=== PATIENT | female | born 1980 | race Caucasian/White ===

== ENCOUNTER 2020-12-25 10:42 | Day surgery (SDC) | payer MEDICARE, MEDICAID, SELFPAY ==
[2020-12-25] VITALS (7 sets, daily range): BP systolic 101–117; BP diastolic 65–83; PULSE 66–87; RESP 16–18; TEMP 36.4–37.5; O2SAT 96–100; BMI 18.5
--- NOTE | 2020-12-25 | EGD_PTH ---
PATIENT: MICHELE GALLEGOS LOC: EN U#:[id number] AGE/SX: 40/F ROOM: RE12/25/[address]: Dr. Marquise Plunkett MD : 1980 BED: DIS: 12/25/2020 SPEC #: [id number] RECD: 12/25/20 11:27 STATUS: KRUNAL SANZEdward #: [id number] LISANDRO: 12/25/20 00:[address]: Marquise Plunkett DEPT: SURGICAL PATHOLOGY RECD BY: Kerry Barahona ENTERED: 12/25/20 13:06 SP TYPE: EGD BIOPSY OT DR: Dr. Abiola Bass MD Tissues: Gastric mucous membrane Procedures: Surgery Specimen Level IV HEADER OPERATION: EGD ([facility] [place] PRE-OP DIAGNOSIS: Failure to thrive, nausea TISSUE SUBMITTED: Antrum biopsy for H. pylori and path MICROSCOPIC DIAGNOSIS Gastric antrum, biopsy: Mild chronic gastritis. See comment. AM:cortes 12/26/2020 COMMENT The results of immunohistochemistry for Helicobacter pylori will be reported separately ([id number]). MICROSCOPIC DESCRIPTION Slides are reviewed. GROSS DESCRIPTION Received in fixative is one container labeled with the patient's name and designated antrum biopsy. The specimen consists of one irregular fragment of light clemens soft tissue that measures 0.4 x 0.2 x 0.1 cm. The specimen is totally submitted in one cassette. / SJ:cortes 12/25/20 TC:3 CPT: 05320
[2020-12-25 11:06] LABS: Internal QC Validated? YES +Cl - CLEAR BKGD; Pregnancy, Urine Negative Negative
[2020-12-25] MEDS: Lactated Ringers 1,000 ML 100 ML IV (11:12)
--- NOTE | 2020-12-25 12:00 | IMM_PTH ---
PATIENT: MICHELE GALLEGOS LOC: EN U#:[id number] AGE/SX: 40/F ROOM: RE12/25/[address]: Dr. Marquise Plunkett MD : 1980 BED: DIS: 12/25/2020 SPEC #: [id number] RECD: 12/25/20 13:08 STATUS: KRUNAL REEdward #: [id number] LISANDRO: 12/25/20 12:[address]: Marquise Plunkett DEPT: IMMUNOHISTOCHEMISTRY RECD BY: Deann Olivo ENTERED: 12/25/20 13:08 SP TYPE: IMMUNO OTHR DR: Dr. Abiola Bass MD Tissues: Stomach, NOS Procedures: H Pylori (initial) PHYSICIAN & INSTITUTION [place] [address] SPECIMEN INFORMATION: Tissue Source: Antrum biopsy Clinical Info: Robyn to thriveevelyn Specimen Number: [id number] CPT code: 50094 METHODOLOGY: Deparaffinized sections of prefer/formalin-fixed tissue or PAP/DQ stained slides are incubated with monoclonal/polyclonal antibodies/oligonucleotide probes. Localization is made via biotin free immunoperoxidase method. Appropriate controls are performed and reacted as expected. Results on target cell population are indicated in the following table: RESULTS: ANTIBODY / CLONE RESULT H Pylori (polyclonal) negative These tests were developed and their performance characteristics determined by [facility]. They may not have been cleared or approved by the U.S. Food and Drug Administration. The FDA has determined that such clearance or approval is not necessary. INTERPRETATION: Antrum biopsy: Negative for Helicobacter pylori organisms. AM:cortes 12/26/2020
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
--- NOTE | 2020-12-28 15:09 | OP.EGD_ITS ---
Patient Name: Brianna Chowdhury Procedure Date: 12/25/2020 10:14 AM Date of : 1980 Age: 40 Procedure: Upper GI endoscopy Indications: Failure to thrive, Nausea Providers: Marquise Plunkett MD Referring MD: Abiola Bass Medicines: See the Anesthesia note for documentation of the administered medications Patient Profile: This is a 40 year old female. Refer to note in patient chart for documentation of history and physical. Complications: No immediate complications. Estimated blood loss: Minimal. Procedure: Pre-Anesthesia Assessment: - Prior to the procedure, a History and Physical was performed, and patient medications and allergies were reviewed. The patient's tolerance of previous anesthesia was also reviewed. The risks and benefits of the procedure and the sedation options and risks were discussed with the patient. All questions were answered, and informed consent was obtained. Prior Anticoagulants: The patient has taken no previous anticoagulant or antiplatelet agents. ASA Grade Assessment: II - A patient with mild systemic disease. After reviewing the risks and benefits, the patient was deemed in satisfactory condition to undergo the procedure. After obtaining informed consent, the endoscope was passed under direct vision. Throughout the procedure, the patient's blood pressure, pulse, and oxygen saturations were monitored continuously. The gastroscope was introduced through the mouth, and advanced to the second part of duodenum. The upper GI endoscopy was accomplished without difficulty. The patient tolerated the procedure well. Scope In: 12:11:31 PM Scope Out: 12:14:04 PM Total Procedure Duration Time 0 hours 2 minutes 33 seconds Findings: The Z-line was regular and was found 40 cm from the incisors. No biopsies or other specimens were collected for this exam. Localized mild inflammation characterized by erythema was found in the duodenal bulb. No biopsies or other specimens were collected for this exam. Localized minimal inflammation characterized by erythema was found in the prepyloric region of the stomach. Biopsies were taken with a cold forceps for Helicobacter pylori testing. Impression: - Z-line regular, 40 cm from the incisors. No specimens collected. - Duodenitis. No specimens collected. - Gastritis. Biopsied. Recommendation: - Discharge patient to home. - Resume previous diet. - Continue present medications. - Await pathology results. - Repeat upper endoscopy PRN for surveillance. - Return to nurse practitioner in 1 week. Procedure Code(s): --- Professional --- 26394, Esophagogastroduodenoscopy, flexible, transoral; with biopsy, single or multiple Diagnosis Code(s): --- Professional --- K29.80, Duodenitis without bleeding K29.70, Gastritis, unspecified, without bleeding R62.7, Adult failure to thrive R11.0, Nausea CPT copyright 2017 [employer]. All rights reserved. The codes documented in this report are preliminary and upon executive secretary social welfare review may be revised to meet current compliance requirements. MD Marquise Barbosa MD 12/25/2020 12:18:49 PM This report has been signed electronically. Number of Addenda: 0 Note Initiated On: 12/25/2020 10:14 AM
--- NOTE | 2020-12-28 15:09 | OP.CCLET_ITS ---
12/25/2020 Abiola Bass [address] [place] [id number] Re : Upper GI endoscopy procedure for Brianna Trenton Dear Dr. Bass This procedure was performed on Friday, December 25, 2020. My impressions and recommendations are as follows: Impressions : - Z-line regular, 40 cm from the incisors. No specimens collected. - Duodenitis. No specimens collected. - Gastritis. Biopsied. Recommendations : - Discharge patient to home. - Resume previous diet. - Continue present medications. - Await pathology results. - Repeat upper endoscopy PRN for surveillance. - Return to nurse practitioner in 1 week. My findings are described in the full procedure note, which is enclosed. If I can be of further assistance, please feel free to contact me at Doctor phone number(s): , Fax: [phone], Work: . Sincerely, MD Marquise Barbosa MD 12/25/2020 12:18:49 PM This report has been signed electronically.
== END 2020-12-25 13:10 ==
LOC: EN 10:43 → AC 10:44
PROVIDERS: Anesthesiology; PCP Internal Medicine; Referring Provider Internal Medicine; Visit Provider Surgery
PROC: 0DJ08ZZ Inspection of Upper Intestinal Tract, Via Natural or Artificial Opening Endoscopic (ICD-10-PCS; CPT 43235; principal; 2020-12-25 11:55)
DX: K29.80 Duodenitis without bleeding (principal); K29.50 Unspecified chronic gastritis without bleeding; R62.7 Adult failure to thrive; R11.0 Nausea; F32.9 Major depressive disorder, single episode, unspecified; F41.1 Generalized anxiety disorder; K21.9 Gastro-esophageal reflux disease without esophagitis; F17.210 Nicotine dependence, cigarettes, uncomplicated; F12.90 Cannabis use, unspecified, uncomplicated; Z79.899 Other long term (current) drug therapy; Z68.1 Body mass index [BMI] 19.9 or less, adult
CPT/HCPCS: 43239; 81025; 87426; 88305; 88342; C9803; J7120; J2405

== ENCOUNTER 2021-07-24 14:16 | Emergency (ER) | payer MEDICARE, MEDICAID, SELFPAY ==
[2021-07-24 14:16] VITALS: BP 89/72; PULSE 78; RESP 16; TEMP 36.6; O2SAT 98; BMI 18.5
--- NOTE | 2021-07-24 16:39 | EX.ED.DYSGE1 ---
HPI History of Present Illness Chief Complaint: Headache Detail of Chief Complaint: Cold symptoms and headache Informant: patient Narrative Narrative: Patient presents with cold symptoms for a couple of days with cough and myalgias and headache and runny nose. Patient states the headache started couple of days ago and she cannot get rid of it. She describes a photophobia and vomited x2 yesterday. She denies any Covid exposures. Patient has not had her Covid vaccine. Cough is mostly nonproductive. Patient states the headache came on gradually. She describes the headache as throbbing and involving the entire head. Prior similar symptoms: Yes PFSH PFSH Medical History Anxiety Anxiety and depression Chronic back pain Chronic cough Depression Difficulty swallowing Frequent headaches Gastric reflux GERD (gastroesophageal reflux disease) History of alcohol abuse History of pain when walking History of palpitations Injury of head and neck Manic depressive disorder Marijuana use Migraine headache Restless legs Shoulder pain Smoker Home Medications pantoprazole 40 mg tablet,delayed release 40 mg PO QAM #90 tab 10/20/17 [Rx Last Taken Unknown] cholecalciferol (vitamin D3) [Vitamin D3] 25 mcg PO DAILY 12/18/20 [History Last Taken Unknown] sertraline 100 mg PO DAILY 12/18/20 [History Last Taken Unknown] Allergy/AdvReac Type Severity Reaction Status Date / Time No Known Allergies Allergy Verified 07/24/21 14:19 Family History (Updated 10/20/17 @ 14:38 by Daily Decker) Mother COPD (chronic obstructive pulmonary disease) Alcohol abuse Anxiety and depression Brother Anxiety and depression Social History (Updated 10/20/17 @ 14:39 by Daily Decker) Smoking Status: Current every day smoker tobacco type: cigarettes Tobacco: How many years used: 20 alcohol intake: former year quit: 2001 substance use type: marijuana what type of physical activity do you participate in: none ROS ROS ED Constitutional Constitutional ED: Reports systems reviewed and no addt'l complaints, except as documented; Denies body ache(s), change in weight or chills Eyes Eyes: Denies acute decrease in peripheral vision, change in vision, double vision or loss of vision ENT ENT ED: Reports none; Denies ear pain, lip swelling, loss taste/smell, neck pain, otalgia or sore throat Cardiovascular Cardiovascular: Reports none; Denies abdominal pain, chest pain with activity, leg edema, lightheadedness, palpitations, rapid heart rate or syncope Respiratory/Chest Respiratory/Chest: Reports none and cough; Denies change in mental status, dry cough, dyspnea, hemoptysis, shortness of breath at rest or shortness of breath with exertion Gastrointestinal Gastrointestinal: Reports none, nausea and vomiting; Denies abdominal pain, change in stool character, diarrhea, hematemesis, hematochezia, melena or rectal bleeding Genitourinary Genitourinary ED: Reports none; Denies abdominal discomfort, anuria, dysuria, genital pain or polyuria Musculoskeletal Musculoskeletal: Reports none and myalgias; Denies arthralgias, back pain, difficulty walking, extremity pain or muscle weakness Integumentary Reports none; Denies abscess or rash Neurologic Neurologic: Reports none and headache(s); Denies abnormal gait, confusion, focal weakness, frequent falls, loss of vision, numbness, paresthesias, radicular pain, vertigo or weakness Psychiatric Psychiatric: Reports systems reviewed and no addt'l complaints, except as documented and none; Denies behavioral changes, confusion, difficulty concentrating, hallucinations, suicidal ideation, tactile hallucinations or visual hallucinations Endocrine Endocrinology: Denies none, cold intolerance, excessive sweating, fatigue or heat intolerance Hematologic/Lymphatic Hematologic/Lymphatic: Reports none; Denies anemia, easy bleeding or easy bruising Allergic/Immunologic Allergic/Immunologic ED: Denies as per HPI, none, lip swelling, mouth swelling, throat swelling, tongue swelling or hives EXAM Physical Exam Const Vital Signs: 07/24/21 14:16 07/24/21 17:20 Temperature 97.8 F 98.6 F Temperature Source Temporal Temporal Pulse Rate 78 Respiratory Rate 16 Blood Pressure 89/72 L Blood Pressure Mean 77 Pulse Ox 98 Oxygen Delivery Method Room Air Room Air Positive well nourished and well developed General Appearance ED: well developed and NAD HEENT Reports TM's clear and moist mucous membranes normocephalic and atraumatic; Negative for trauma or tenderness Tympanic Membrane ED: Yes TM's clear Eyes PERRL and EOMs intact bilaterally General Eye ED: Negative for pale conjunctiva or scleral icterus Neck no lymphadenopathy, supple and no JVD General: Negative for tenderness Chest Wall inspection of chest normal and palpation of chest normal Chest: Negative for tenderness Resp normal respiratory effort and clear to auscultation bilaterally Effort and Inspection: Negative for respiratory distress or pain with movement Auscultation: Negative for rhonchi, wheezes or diminished lung sounds Cardio regular rate, regular rhythm, S1 normal heart sound, S2 normal heart sound and no murmurs Peripheral Pulses: pulses 2+ throughout GI normal to inspection, nondistended, normoactive bowel sounds, soft to palpation, non-tender, non-distended and no masses Back/Spine no CVA tenderness and no thoracic nor lumbar tenderness Extremity normal to inspection General Extremety ED: Negative for edema General Extremity: Negative for edema Neuro oriented x3, CN's II-XII intact bilaterally, no sensory deficits noted and gait normal Neuro Narrative: Finger-nose and heel pagan testing within normal limits, negative Romberg, negative for drift, fundi benign Sensorium / Orientation: awake, alert, oriented to person, oriented to place and oriented to time Motor Exam: strength 5/5 throughout and strength abnormal Psych mental status grossly normal Skin no rashes or lesions noted and no wounds MDM MDM MDM Narrative Medical decision making narrative: IV line established. Patient was given Reglan, Benadryl, Toradol, and a liter fluid bolus and her headache resolved. Her influenza and COVID-19 testing was negative. At this point her headaches resolved and she is feeling much improved. I suspect she likely has a viral URI. Patient advised to push fluids. Patient to return if condition should worsen anyway. Discharge Plan Triage Chief Complaint: Headache ED Provider: Jeanette Esteves Dx/Rx/DC Orders Clinical Impression: Viral URI, Migraine Instructions: ED, Migraine (Classical), ED URI, Viral, No Abx (Adult) Prescriptions: No Action pantoprazole 40 mg tablet,delayed release (DR/EC) 40 mg PO QAM Qty: 90 RF: 4 sertraline 100 mg tablet 100 mg PO DAILY RF: 0 cholecalciferol (vitamin D3) [Vitamin D3] 25 mcg (1,000 unit) Tablet 25 mcg PO DAILY RF: 0 Primary Care Provider: Abiola Bass Referrals: bAiola Bass MD [Primary Care Provider] - 5-7 Days Disposition Disposition: Home, Self Care
[2021-07-24 17:20] VITALS: TEMP 37
[2021-07-24] MEDS: 0.9% Normal Saline 1,000 ML 1000 ML IV (17:24)
[2021-07-24] MEDS: Ketorolac 30 MG/ML Syringe IV (17:24)
[2021-07-24] MEDS: DiphenhydrAMINE 50 MG/ML Syringe 25 MG IV (17:24)
[2021-07-24] MEDS: Metoclopramide 10 MG/2 ML Vial IV (17:24)
[2021-07-24 18:38] VITALS: BP 99/70; PULSE 62; RESP 16; TEMP 36.9; O2SAT 99
== END 2021-07-24 18:39 | disposition home or self-care (01) ==
PROVIDERS: Emergency Provider Emergency Medicine; PCP Internal Medicine
DX: J06.9 Acute upper respiratory infection, unspecified (principal); G43.909 Migraine, unspecified, not intractable, without status migrainosus; F41.9 Anxiety disorder, unspecified; K21.9 Gastro-esophageal reflux disease without esophagitis; Z79.899 Other long term (current) drug therapy; F31.9 Bipolar disorder, unspecified; F17.210 Nicotine dependence, cigarettes, uncomplicated
CPT/HCPCS: 87426; 87804; 96374; 96375; 99283; J7030; A4216

== ENCOUNTER 2021-07-28 12:38 | Emergency (ER) | payer MEDICARE, MEDICAID, SELFPAY ==
[2021-07-28 12:38] VITALS: BP 105/81; PULSE 61; RESP 16; TEMP 36.3; O2SAT 99; BMI 17.7
--- NOTE | 2021-07-28 15:05 | EX.ED.DYSGE1 ---
HPI History of Present Illness Chief Complaint: Nausea/Vomiting Informant: patient Narrative Narrative: Patient returns the emergency with nausea vomiting diarrhea. Her headache is gone. She has no congestion runny nose or cough. She is not having abdominal pain. She has no urinary symptoms such as dysuria frequency or urgency. She is still urinating. She states she cannot keep any fluids down. She has nothing at home for nausea. She did have Covid testing the other day which was negative. She also has no myalgias. PFSH PFSH Medical History Anxiety Anxiety and depression Chronic back pain Chronic cough Depression Difficulty swallowing Frequent headaches Gastric reflux GERD (gastroesophageal reflux disease) History of alcohol abuse History of pain when walking History of palpitations Injury of head and neck Manic depressive disorder Marijuana use Migraine headache Restless legs Shoulder pain Smoker Home Medications pantoprazole 40 mg tablet,delayed release 40 mg PO QAM #90 tab 10/20/17 [Rx Last Taken Unknown] cholecalciferol (vitamin D3) [Vitamin D3] 25 mcg PO DAILY 12/18/20 [History Last Taken Unknown] sertraline 100 mg PO DAILY 12/18/20 [History Last Taken Unknown] ondansetron 4 mg PO Q8H PRN #10 tab 07/28/21 [Rx Last Taken Unknown] promethazine 25 mg PO TID PRN #10 tab 07/28/21 [Rx Last Taken Unknown] Allergy/AdvReac Type Severity Reaction Status Date / Time No Known Allergies Allergy Verified 07/28/21 12:40 Family History Mother COPD (chronic obstructive pulmonary disease) Alcohol abuse Anxiety and depression Brother Anxiety and depression Social History Smoking Status: Current every day smoker tobacco type: cigarettes Tobacco: How many years used: 20 alcohol intake: former year quit: 2001 substance use type: marijuana what type of physical activity do you participate in: none ROS ROS ED Constitutional Constitutional ED: Denies chills or fever(s) Eyes Eyes: Denies change in vision ENT ENT ED: Denies rhinorrhea or sore throat Cardiovascular Cardiovascular: Denies chest pain or palpitations Respiratory/Chest Respiratory/Chest: Denies cough or dyspnea Gastrointestinal Gastrointestinal: Reports diarrhea, nausea, vomiting and other Details: No blood in stool or vomitus. ; Denies abdominal pain Genitourinary Genitourinary ED: Denies dysuria, hematuria or urinary frequency Musculoskeletal Musculoskeletal: Denies myalgias Integumentary Denies rash Neurologic Neurologic: Reports other Details: Her headache has completely resolved. ; Denies headache(s) Psychiatric Psychiatric: Reports anxiety and depression Endocrine Endocrinology: Denies polydipsia or polyuria Allergic/Immunologic Allergic/Immunologic ED: Denies mouth swelling or urticaria EXAM Physical Exam Const Vital Signs: 07/28/21 12:38 07/28/21 15:14 07/28/21 17:51 Temperature 97.4 F L Temperature Source Temporal Pulse Rate 61 61 64 Respiratory Rate 16 14 Blood Pressure 105/81 H 100/80 104/75 Blood Pressure Mean 89 86 84 Pulse Ox 99 98 Oxygen Delivery Method Room Air Room Air Positive well nourished and well developed General Appearance ED: well developed and NAD HEENT Reports moist mucous membranes HEENT Narrative: Mucous membranes are still moist. Eyes General Eye ED: Negative for pale conjunctiva or scleral icterus Neck no JVD Chest Wall inspection of chest normal Resp normal respiratory effort and clear to auscultation bilaterally Auscultation: Negative for rales, rhonchi or wheezes Cardio regular rate and regular rhythm GI normal to inspection, nondistended, normoactive bowel sounds and non-tender GI Narrative: Completely benign abdominal exam. Bowel sounds are normal. Palpation: soft Back/Spine no CVA tenderness Extremity General Extremety ED: Negative for edema or tenderness General Extremity: Negative for edema Neuro Sensorium / Orientation: alert Psych mental status grossly normal Skin no rashes or lesions noted MDM MDM MDM Narrative Medical decision making narrative: Patient's electrolytes show no marked abnormalities. She is better. She is gotten fluids. She has not vomited. She still has some nausea. I will write for some Phenergan here. We will write her for both Phenergan and Zofran to go. We discussed returning with worsening symptoms, development of pain, fevers or other concerns. Lab Data Attestation: I reviewed the patient's lab results. Labs: Laboratory Results - last 24 hr 07/28/21 14:10 Sodium 139 Potassium 3.8 Chloride 106 Carbon Dioxide 25.0 Anion Gap 8 BUN 10 Creatinine 0.56 Estim Creat Clear Calc 87.02 Est GFR (MDRD) Af Amer 153 Est GFR (MDRD) Non-Af 127 BUN/Creatinine Ratio 17.8 Glucose 73 L Calcium 8.7 Discharge Plan Triage Chief Complaint: Nausea/Vomiting ED Provider: Dawson Zendejas Dx/Rx/DC Orders Clinical Impression: Nausea vomiting and diarrhea, Viral syndrome Instructions: ED Vomiting and Diarrhea ... Prescriptions: New ondansetron 4 mg tablet,disintegrating 4 mg PO Q8H PRN (Reason: nausea and vomiting) Qty: 10 RF: 0 promethazine 25 mg tablet 25 mg PO TID PRN (Reason: nausea and vomiting) Qty: 10 RF: 0 No Action pantoprazole 40 mg tablet,delayed release (DR/EC) 40 mg PO QAM Qty: 90 RF: 4 sertraline 100 mg tablet 100 mg PO DAILY RF: 0 cholecalciferol (vitamin D3) [Vitamin D3] 25 mcg (1,000 unit) Tablet 25 mcg PO DAILY RF: 0 Primary Care Provider: Abiola Bass Referrals: Abiola Bass MD [Primary Care Provider] - 3-5 Days Disposition Disposition: Home, Self Care
[2021-07-28] MEDS: 0.9% Normal Saline 1,000 ML 1000 ML IV (15:13)
[2021-07-28] MEDS: Ondansetron 4 MG/2 ML Vial IV (15:13)
[2021-07-28 15:14] VITALS: BP 100/80; PULSE 61; RESP 14; O2SAT 98
[2021-07-28 15:25] LABS: Anion Gap 8 (5-15); BUN 10 mg/dL (7-18); BUN/Creat Ratio 17.8 RATIO (10-20); Calcium,Total 8.7 mg/dL (8.5-10.1); Chloride 106 mmol/L (98-107); Creatinine, Serum 0.56 mg/dL (0.55-1.02); EST Glomerular Filtration Rate 127 mL/min (>60); Est Glom Filt Rate - Afr Amer 153 mL/min (>60); Estimated Creatinine Clearance 87.02 ml/min; Glucose 73 mg/dL (74-106); Potassium 3.8 mmol/L (3.5-5.1); Sodium Level 139 mmol/L (136-145)
[2021-07-28 17:51] VITALS: BP 104/75; PULSE 64
[2021-07-28] MEDS: proMETHazine 25 MG/ML Syringe 12.5 MG IM (18:06)
== END 2021-07-28 18:11 | disposition home or self-care (01) ==
PROVIDERS: Emergency Provider Emergency Medicine; PCP Internal Medicine; Visit Provider Emergency Medicine
DX: R11.2 Nausea with vomiting, unspecified (principal); R19.7 Diarrhea, unspecified; B34.9 Viral infection, unspecified; F17.210 Nicotine dependence, cigarettes, uncomplicated; F12.10 Cannabis abuse, uncomplicated
CPT/HCPCS: 80048; 96361; 96372; 96374; 99283; J7030; A4216; J2405

== ENCOUNTER 2022-05-30 05:45 | Day surgery (SDC) | payer MEDICARE, MEDICAID, SELFPAY ==
[2022-05-29 14:59] LABS: Hematocrit 38.8 % (37-47); Hemoglobin 13.1 g/dL (12.0-15.0); Mean Corp Hgb Conc 33.8 g/dL (32-36); Mean Corpuscular Hgb 29.2 pg (27.0-32.0); Mean Corpuscular Volume 86.6 fL (81-99); Mean Platelet Vol. 11.1 fl (6.2-12.0); Platelet Count 240 K/mm3 (150-450); RBC Distribution Width CV 12.6 % (11.6-14.6); RBC Distribution Width SD 39.8 fl (35.1-43.9); Red Blood Count 4.48 M/mm3 (4.2-5.4); White Blood Count 7.6 K/mm3 (4.4-11.0)
[2022-05-29 16:19] LABS: Internal QC Validated? YES +Cl - CLEAR BKGD; Pregnancy, Urine Negative Negative
[2022-05-30] VITALS (7 sets, daily range): BP systolic 91–127; BP diastolic 54–84; PULSE 16–84; RESP 15–20; TEMP 36.8–38.6; O2SAT 94–100; BMI 19.3
[2022-05-30] MEDS: Lactated Ringers 1,000 ML 15 ML IV (06:15)
[2022-05-30 06:33] LABS: Internal QC Validated? YES +Cl - CLEAR BKGD; Pregnancy, Urine Negative Negative
--- NOTE | 2022-05-30 07:30 | EMB_PTH ---
PATIENT: MICHELE GALLEGOS LOC: [facility] [place] U#:[id number] AGE/SX: 41/F ROOM: RE05/30/[address]: Dr. Rachel Rodriguez DO : 1980 BED: DIS: 05/30/2022 SPEC #: [id number] RECD: 05/30/22 11:37 STATUS: KRUNAL REEdward #: [id number] LISANDRO: 05/30/22 07:[address]: Rachel Rodriguez DEPT: SURGICAL PATHOLOGY RECD BY: Ev Valadez ENTERED: 05/30/22 12:46 SP TYPE: ENDOM BX/C ANDREW DR: Dr. Abiola Bass MD Tissues: Endometrium, NOS Procedures: Surgery Specimen Level IV HEADER OPERATION: Cervical dilation, attempted hysteroscopy, cervical biopsy PRE-OP DIAGNOSIS: Menorrhagia TISSUE SUBMITTED: Endometrial biopsy MICROSCOPIC DIAGNOSIS Endometrial biopsy: Fragments of benign endocervical epithelium and blood. Scant strips of benign endometrial epithelium. See comment. SJ:cortes 06/02/2022 COMMENT Significant amount of endometrial tissue is not seen. Clinical correlation and appropriate follow up are necessary. MICROSCOPIC DESCRIPTION Slides are reviewed. GROSS DESCRIPTION Received in fixative is one container labeled with the patient's name and designated endometrial biopsy. The specimen consists of multiple irregular fragments of red-clemens soft tissue that in aggregate measure 1.5 x 1 x <0.1 cm. The specimen is totally submitted in one cassette. / AM:cortes 05/30/2022 TC: Cannot code CPT: 80081
[2022-05-30] MEDS: Lubricating Jelly 60 GM Tube 30 GM (07:44)
--- NOTE | 2022-05-30 08:31 | DCINST_ITS ---
Discharge Instructions Diet Discharge Diet: No restrictions Activity Discharge Activity: [address] (once you are more than 24 hours out from surgery) May resume sexual activity in: 1-2 weeks (no tampons, intercourse, or soaking in water for 1-2 weeks while you are having bleeding) Weight Bearing Status: Weight bearing as tolerated Lifting Restrictions: none Dressing / Incision Call your doctor if you observe: Fever of 101 or Higher, Coldness, Increased Pain, Numbness or Tingling, Change in Color, Inability to urinate, Inability to have a bowel movement, Using more than 1 pad per hour, Shortness of breath, Dizziness, Fainting spells, Swelling in the ankles, Chest pain, Increased palpitations (irregular heartbeat), Calf discomfort and Uncontrolled pain Follow Up Care Please Follow Up With: Rachel Rodriguez DO When: 1-2 weeks Test Results: Test results from this visit will be discussed in further detail at your follow- up appointment, if applicable. Discharge Plan Admission Primary Reason for Your Visit: surgery Attending Provider: Rachel Rodriguez Primary Care Provider: Abiola Bass Discharge Orders/Prescriptions Prescriptions: New ibuprofen 600 mg tablet 600 mg PO Q6H PRN (Reason: pain) Qty: 30 0RF Continued sertraline 100 mg tablet 100 mg PO DAILY Label Comments: TAKE 1 TABLET BY MOUTH ONCE DAILY cholecalciferol (vitamin D3) [Vitamin D3] 25 mcg (1,000 unit) Tablet 25 mcg PO DAILY alprazolam 0.5 mg tablet 0.5 mg PO BID PRN PRN (Reason: Anxiety) Label Comments: TAKE 1 TABLET BY MOUTH AT BEDTIME NEEDED esomeprazole magnesium [Nexium] 40 mg Capsule,Delayed Release(Dr/Ec) 40 mg PO DAILY Referrals / Follow Up: Abiola Bass MD [Primary Care Provider] - Disposition Disposition (needs filled in before D/C Order can be placed): Home, Self Care
--- NOTE | 2022-05-30 08:34 | PCM.OPRPT ---
Problems Associated Problem List Diagnoses (1) Menorrhagia: Report of Operation Date of Procedure: 05/30/22 Pre-Operative Diagnosis: menorrhagia Post-Operative Diagnosis: as above Surgery/Procedure Performed:: cervical dilation, attempted hysteroscopy, EMB Description of Surgical Findings:: Stenotic cervix. Anteverted and mobile uterus Surgeon: Rachel Rodriguez Type of Anesthesia: MAC Special Medications: None Specimen's removed: Endometrial biopsy Drains: None Estimated Blood Loss (mL): < 50 cc Fluids Replaced: See anesthesia record Description of Procedure: The patient was taken to the operating room where she was prepped and draped in the dorsal lithotomy position using yellowfin stirrups. A weighted speculum was placed in the vagina to expose the cervix. A single-tooth tenaculum was placed on the anterior lip of the cervix. The patient had used Cytotec the night before the procedure and the morning of. The cervix appeared stenotic. Was able to dilate the external cervical os but not the internal cervical os using cervical dilators. The hysteroscope was then placed to attempt to visualize the cervical canal and hydrodilate, with inability to dilate the cervix. The cervical dilators were then used again in an attempt to dilate the cervical canal, but unable to get into the uterine cavity and fully dilated given significant stenosis. The uterus sounded to 5 cm. Using an endometrial Pipelle a sample was collected and sent to pathology for review. Bleeding was hemostatic. All instruments were removed from the vagina. The patient was taken to the recovery room in stable condition. Instrument and sponge counts were correct. Grafts/Implants Used: None Complications None Admit VTE Documentation VTE Present on Admission: No VTE Mechan Device Prophylaxis: SCD's
[2022-05-30] MEDS: Ketorolac 15 MG/ML Vial IV (09:08)
== END 2022-05-30 09:53 | disposition home or self-care (01) ==
LOC: SDC 05:47 → AC 05:47
PROVIDERS: Anesthesiology; PCP Internal Medicine; Referring Provider Obstetrics & Gynecology; Visit Provider Obstetrics & Gynecology
PROC: 0U5B8ZZ Destruction of Endometrium, Via Natural or Artificial Opening Endoscopic (ICD-10-PCS; CPT 58558; principal; 2022-05-30 07:15)
DX: N92.0 Excessive and frequent menstruation with regular cycle (principal); F17.210 Nicotine dependence, cigarettes, uncomplicated; F32.A Depression, unspecified; F41.9 Anxiety disorder, unspecified; K21.9 Gastro-esophageal reflux disease without esophagitis; Z79.899 Other long term (current) drug therapy
CPT/HCPCS: 58558; 00952; 36415; 81025; 85027; 86850; 86900; 86901; 88305; J7120; J2405

== ENCOUNTER 2024-08-24 17:36 | Emergency (ER) | payer MEDICARE, MEDICAID, SELFPAY ==
[2024-08-24 17:37] VITALS: BP 111/86; PULSE 77; RESP 16; TEMP 36.3; O2SAT 100; BMI 19.7
[2024-08-24 18:22] VITALS: BP 110/81; PULSE 70; RESP 17; O2SAT 100
[2024-08-24 20:00] VITALS: BP 102/76; PULSE 66; RESP 18; O2SAT 97
[2024-08-24 20:35] LABS: Mucous, Urine 0 SEEN /hpf (<or=2+); Red Blood Cells-Urine 0 SEEN /hpf (0-5); White Blood Cells 0 SEEN /hpf (0-5)
[2024-08-24 20:37] LABS: Absolute Lymphocyte Count 2.65 X10^3/uL (0.83-4.51); Basophil# 0.09 X10^3/uL; Color, Urine Yellow (Yellow); Eosinophil# 0.15 X10^3/uL; Eosinophils% 1.7 % (0-5); Glucose, Dipstick Normal (Normal); Hematocrit 41.9 % (37-47); Hemoglobin 13.9 g/dL (12.0-15.0); Ketone-Dipstick 15 mg/dl (Negative); Leukocyte Esterase-Dipstick Negative /ul (Negative); Lymphocyte # 2.65 X10^3/ul (0.83-4.51); Lymphocyte % 29.8 % (19-41); Mean Corp Hgb Conc 33.2 g/dL (32-36); Mean Corpuscular Hgb 28.1 pg (27.0-32.0); Mean Corpuscular Volume 84.8 fL (81-99); Mean Platelet Vol. 11.2 fl (6.2-12.0); Monocyte# 1.01 X10^3/uL; Monocyte% 11.4 % (0-10); NRBC Flagged by Analyzer 0 % (0-5); Neutrophil # 4.96 X10^3/uL (2.7-7.7); Neutrophil % 55.9 % (47-70); Nitrite-Dipstick Negative (Negative); Occult Blood-Urine Negative /ul (Negative); Platelet Count 318 K/mm3 (150-450); Protein-Dipstick Negative (Negative); RBC Distribution Width CV 11.9 % (11.6-14.6); RBC Distribution Width SD 36.5 fl (35.1-43.9); Red Blood Count 4.94 M/mm3 (4.2-5.4); Specific Gravity, Urine 1.015 (1.002-1.030); Urine Bilirubin Dipstick Negative (Negative); Urine Clarity Clear (Clear); Urine Urobilinogen Normal (Normal); White Blood Count 8.9 K/mm3 (4.4-11.0)
[2024-08-24 20:59] LABS: Bacteria RARE /hpf (None Seen); Squamous Epithelial Cells - UA 0-5 SEEN /hpf (5-10)
[2024-08-24 21:03] LABS: ALB/GLOB Ratio 1.1 RATIO (0.9-2.4); AST(SGOT) 12 U/L (15-37); Alanine Aminotransfer ALT/SGPT 13 U/L (13-56); Albumin, Serum 3.9 g/dL (3.2-5.0); Alkaline Phosphatase 61 U/L (45-117); Anion Gap 7 (5-15); BUN 11 mg/dL (7-18); BUN/Creat Ratio 14.7 RATIO (10-20); Chloride 106 mmol/L (98-107); Creatinine, Serum 0.75 mg/dL (0.55-1.02); EST Glomerular Filtration Rate 90 mL/min (>60); Est Glom Filt Rate - Afr Amer 109 mL/min (>60); Estimated Creatinine Clearance 69.47 ml/min; Globulin 3.6 g/dL (2.2-4.2); Glucose 88 mg/dL (74-106); Potassium 3.4 mmol/L (3.5-5.1); Protein, Total 7.5 g/dL (6.4-8.2); Sodium Level 137 mmol/L (136-145)
--- NOTE | 2024-08-24 21:15 | EDS_ITS ---
HPI HPI - GI History of Present Illness Chief Complaint: Abd Pain Informant: patient Abdominal Pain/Flank Pain Onset: Month(s) (1.5) Context: Gradual Onset Timing: Continuous Quality: - (Nauseated) Location: Epigastric Worsened by: Food Relieved by: Nothing Nausea/Vomiting/Emesis GI Symptom: Positive for Nausea and Vomiting Quality: Positive for Nonbilious; Negative for Blood streaks, Coffee ground or Hematemesis Diarrhea/Melena/Hematochezia GI Symptom: Negative for Diarrhea, Melena or Hematochezia Associated Symptoms Associated Symptoms: Negative for Dysuria, Frequency or Hematuria Narrative Narrative: Patient presents with nausea and vomiting that has been constant for the past 1- 1/2 months. Patient states that every time she eats anything she becomes nauseated and vomits. Patient states she has been unable to keep anything down including her depression medication. Patient denies any pain. Patient states she just gets nauseated whenever she tries to eat or drink anything. Patient denies any hematemesis or coffee-ground emesis. Patient denies any diarrhea, melena, or hematochezia. Patient denies any fevers or chills. Patient denies any dysuria or hematuria. [facility] Medical History Edentulous Depression Anxiety Marijuana use Restless legs Migraine headache Injury of head and neck Smoker Chronic cough History of pain when walking History of palpitations GERD (gastroesophageal reflux disease) Shoulder pain Frequent headaches Chronic back pain History of alcohol abuse Manic depressive disorder Anxiety and depression Home Medications ?Medication ?Instructions ?Recorded ?Last Taken ?Type cholecalciferol (vitamin D3) 25 25 mcg PO DAILY 12/18/20 Unknown History mcg (1,000 unit) tablet (Vitamin D3) sertraline 100 mg tablet 100 mg PO DAILY 12/18/20 Unknown History alprazolam 0.5 mg tablet 0.5 mg PO BID PRN PRN Anxiety 05/23/22 Unknown History esomeprazole magnesium 40 mg 40 mg PO DAILY 05/23/22 Unknown History capsule,delayed release (Nexium) ibuprofen 600 mg tablet 600 mg PO Q6H PRN pain #30 tabs 05/30/22 Unknown Rx ondansetron 4 mg disintegrating 4 mg PO Q8H PRN PRN Nausea #10 tabs 08/24/24 Unknown Rx tablet Allergy/AdvReac Type Severity Reaction Status Date / Time No Known Allergies Allergy Verified 08/24/24 17:37 Family History Mother COPD (chronic obstructive pulmonary disease) Alcohol abuse Anxiety and depression Brother Anxiety and depression Surgical History History of esophagogastroduodenoscopy (EGD) Social History household members: other Smoking Status: Current every day smoker tobacco type: cigarettes Tobacco: How many years used: 20 alcohol intake: former year quit: 2001 substance use type: marijuana what type of physical activity do you participate in: none ROS ROS ED Constitutional Constitutional ED: Denies chills or fever(s) Eyes Eyes: Denies blurry vision or change in vision ENT ENT ED: Denies rhinorrhea or sore throat Cardiovascular Cardiovascular: Denies chest pain or palpitations Respiratory/Chest Respiratory/Chest: Denies cough or dyspnea Gastrointestinal Gastrointestinal: Reports abdominal pain, nausea and vomiting; Denies diarrhea or melena Genitourinary Genitourinary ED: Denies dysuria or hematuria Musculoskeletal Musculoskeletal: Denies back pain or neck pain Integumentary Denies abscess or rash Neurologic Neurologic: Denies headache(s) or weakness Allergic/Immunologic Allergic/Immunologic ED: Denies mouth swelling or urticaria EXAM Physical Exam Const Vital Signs: 08/24/24 17:37 08/24/24 18:22 08/24/24 20:00 Temperature 97.3 F L Temperature Source Oral Pulse Rate 77 70 66 Respiratory Rate 16 17 18 Blood Pressure 111/86 H 110/81 H 102/76 Blood Pressure Mean 94 90 84 Pulse Ox 100 100 97 Oxygen Delivery Method Room Air Room Air Room Air 08/24/24 22:00 Temperature Temperature Source Pulse Rate 75 Respiratory Rate 18 Blood Pressure Blood Pressure Mean Pulse Ox 97 Oxygen Delivery Method Positive well nourished and well developed General Appearance ED: well developed and NAD HEENT Reports moist mucous membranes Neck supple and no JVD Resp normal respiratory effort and clear to auscultation bilaterally Cardio regular rate and regular rhythm GI non-distended Palpation: soft and tender epigastric (Mild); Negative for guarding or rebound tenderness present Extremity full ROM General Extremety ED: Negative for edema or tenderness General Extremity: Negative for edema Neuro CN's II-XII intact bilaterally, moves all extremities and no sensory deficits noted Sensorium / Orientation: alert Motor Exam: strength 5/5 throughout Psych mental status grossly normal MDM MDM MDM Narrative Medical decision making narrative: Differential diagnosis includes bowel obstruction, perforation, pancreatitis, electrolyte abnormality, gastroesophageal reflux disease, peptic ulcer disease, duodenal ulcer, bowel obstruction, and perforation. CBC will be obtained to assess for leukocytosis and anemia. Comprehensive metabolic profile will be obtained to assess for hepatic function, renal function, and electrolyte abnormality. Urinalysis will be obtained to assess for urinary tract infection and hematuria. Lipase will be obtained to assess for pancreatitis. CT scan of the abdomen and pelvis will be obtained to assess for bowel obstruction and perforation. Lab Data Attestation: I reviewed the patient's lab results. Lab results narrative: CBC was reviewed and was within normal limits. Comprehensive metabolic profile was reviewed and was within normal limits. Urinalysis was reviewed. There is no evidence of urinary tract infection or hematuria. Lipase was reviewed and was elevated at 174. Labs: Laboratory Results - last 24 hr 08/24/24 20:17 WBC 8.9 RBC 4.94 Hgb 13.9 Hct 41.9 MCV 84.8 MCH 28.1 MCHC 33.2 RDW Std Deviation 36.5 RDW Coeff of Miko 11.9 Plt Count 318 MPV 11.2 Immature Gran % (Auto) 0.200 Neut % (Auto) 55.9 Lymph % (Auto) 29.8 [place] % (Auto) 11.4 H Eos % (Auto) 1.7 Baso % (Auto) 1.0 Absolute Neuts (auto) 5.0 Absolute Lymphs (auto) 2.65 Nucleated RBC % 0 Sodium 137 Potassium 3.4 L Chloride 106 Carbon Dioxide 25.0 Anion Gap 7 BUN 11 Creatinine 0.75 Estim Creat Clear Calc 69.47 Est GFR (MDRD) Af Amer 109 Est GFR (MDRD) Non-Af 90 BUN/Creatinine Ratio 14.7 Glucose 88 Calcium 9.0 Total Bilirubin 0.50 AST 12 L ALT 13 Alkaline Phosphatase 61 Total Protein 7.5 Albumin 3.9 Globulin 3.6 Albumin/Globulin Ratio 1.1 Lipase 174 H Urine Color Yellow Urine Clarity Clear Urine pH 6.0 Ur Specific Holt 1.015 Urine Protein Negative Urine Glucose (UA) Normal Urine Ketones 15 H Urine Occult Blood Negative Urine Nitrite Negative Urine Bilirubin Negative Urine Urobilinogen Normal Ur Leukocyte Esterase Negative Urine RBC 0 SEEN Urine WBC 0 SEEN Ur Squamous Epith Cells 0-5 SEEN Urine Bacteria RARE Urine Mucus 0 SEEN Radiography Diagnostic Testing: Clinical Impression(s) from Imaging Studies Abdomen/Pelvis CT 08/24/24 21:20 IMPRESSION: No acute abnormalities in the abdomen or pelvis. Hepatic steatosis. One or more dose reduction techniques were used (e.g., Automated exposure control, adjustment of the mA and/or kV according to patient size, use of iterative reconstruction technique). Reading Location: [facility] CT scan of the abdomen and pelvis was obtained. There is no acute abnormality noted. There is hepatic steatosis. This was interpreted by the radiologist was also independently reviewed by myself. Treatment and Re-Evaluation :: Patient was given IV fluids, morphine, and Zofran. Patient was given p.o. fluid challenge. Patient was able to tolerate p.o. fluids. Patient was advised of her findings. Patient was instructed to start with a liquid diet and advance as tolerated. Patient was given a prescription for Zofran. Patient was instructed to follow-up with her primary care physician in 5 to 7 days. Patient understood and was agreeable with the plan. All questions were answered. Discharge Plan Triage Chief Complaint: Abd Pain ED Provider: Guevara Hardy Dx/Rx/DC Orders Clinical Impression: Pancreatitis, Nausea and vomiting Instructions: ED Pancreatitis Prescriptions: New ondansetron 4 mg tablet,disintegrating 4 mg PO Q8H PRN PRN (Reason: Nausea) Qty: 10 0RF No Action sertraline 100 mg tablet 100 mg PO DAILY Patient Comments: TAKE 1 TABLET BY MOUTH ONCE DAILY cholecalciferol (vitamin D3) [Vitamin D3] 25 mcg (1,000 unit) Tablet 25 mcg PO DAILY alprazolam 0.5 mg tablet 0.5 mg PO BID PRN PRN (Reason: Anxiety) Patient Comments: TAKE 1 TABLET BY MOUTH AT BEDTIME NEEDED esomeprazole magnesium [Nexium] 40 mg Capsule,Delayed Release(Dr/Ec) 40 mg PO DAILY ibuprofen 600 mg tablet 600 mg PO Q6H PRN (Reason: pain) Qty: 30 0RF Primary Care Provider: MAJO CARDENAS Referrals: OLDER,MAJO, NAILING MACHINE FEEDER-C [Primary Care Provider] - 3-5 Days Print Language: Belizean Disposition Disposition: Home, Self Care
--- NOTE | 2024-08-24 21:20 | CT_ITS ---
PROCEDURE: ABDOMEN/PELVIS W IV CONT ONLY REASON FOR EXAM: Nausea and vomiting. TECHNIQUE: Abdomen and pelvis CT with intravenous contrast. COMPARISON: None. FINDINGS: Lung bases: Clear Liver: Hypodense suggestive of steatosis. Gallbladder: Unremarkable. Spleen: Unremarkable. Pancreas: Unremarkable. Adrenals: Unremarkable. Kidneys: Punctate right kidney nonobstructive calculi. Bladder: Unremarkable. Reproductive Organs: Unremarkable. Bowel: Unremarkable. Appendix: Normal. Lymph nodes: No suspicious lymph node enlargement. Vasculature: Mild atherosclerosis. Peritoneum / Retroperitoneum: No ascites. No free air. Bones: Unremarkable. CT/Abdomen/Pelvis W IV Cont ONLY IMPRESSION: No acute abnormalities in the abdomen or pelvis. Hepatic steatosis. One or more dose reduction techniques were used (e.g., Automated exposure contr ol, adjustment of the mA and/or kV according to patient size, use of iterative reconstruction technique). Reading Location: [id number]
[2024-08-24] MEDS: Morphine 4 MG/ML Syringe IV (21:35)
[2024-08-24] MEDS: 0.9% Normal Saline (1000mL) 1,000 ML 1000 ML IV (21:35)
[2024-08-24] MEDS: Ondansetron 4 MG/2 ML Vial IV (21:36)
[2024-08-24 21:37] LABS: Lipase 174 U/L (13-75)
[2024-08-24 22:00] VITALS: PULSE 75; RESP 18; O2SAT 97
[2024-08-24 23:09] VITALS: BP 104/74; PULSE 74; RESP 18; TEMP 36.6; O2SAT 99
== END 2024-08-24 23:12 | disposition home or self-care (01) ==
PROVIDERS: Emergency Provider Emergency Medicine; PCP Nurse Practitioner; Visit Provider Emergency Medicine
DX: K85.90 Acute pancreatitis without necrosis or infection, unspecified (principal); R11.2 Nausea with vomiting, unspecified; K76.0 Fatty (change of) liver, not elsewhere classified; K21.9 Gastro-esophageal reflux disease without esophagitis; F32.A Depression, unspecified; F41.9 Anxiety disorder, unspecified; F17.210 Nicotine dependence, cigarettes, uncomplicated; Z79.899 Other long term (current) drug therapy; Z87.898 Personal history of other specified conditions
CPT/HCPCS: 74177; 80053; 81001; 83690; 85025; 96361; 96374; 96375; 99283; Q9967; J2405

== ENCOUNTER → 2024-09-06 | Outpatient (CLI) | payer MEDICARE, MEDICAID, SELFPAY ==
[2024-09-06 16:20] LABS: Lipase 40 U/L (73-393)
== END | disposition home or self-care (01) ==
PROVIDERS: PCP Nurse Practitioner; Referring Provider Student in an Organized Health Care Education/Training Program; Visit Provider Student in an Organized Health Care Education/Training Program
DX: K85.90 Acute pancreatitis without necrosis or infection, unspecified (principal)
CPT/HCPCS: 36415; 83690

== ENCOUNTER → 2024-09-07 | Outpatient (CLI) | payer MEDICARE, MEDICAID, SELFPAY ==
[2024-09-12 14:08] LABS: Pancreatic Elastase, Fecal > 800 (>200)
== END | disposition home or self-care (01) ==
PROVIDERS: PCP Nurse Practitioner; Referring Provider Student in an Organized Health Care Education/Training Program; Visit Provider Student in an Organized Health Care Education/Training Program
DX: K85.90 Acute pancreatitis without necrosis or infection, unspecified (principal)
CPT/HCPCS: 82653

== ENCOUNTER 2025-05-28 14:08 | Emergency (ER) | payer MEDICARE, MEDICAID, SELFPAY ==
[2025-05-28 14:09] VITALS: BP 112/88; PULSE 77; RESP 22; TEMP 37.2; O2SAT 99; BMI 21.1
[2025-05-28 16:08] VITALS: PULSE 84; RESP 18
[2025-05-28 16:27] LABS: Hematocrit 42.3 % (37-47); Hemoglobin 14.5 g/dL (12.0-15.0); Immature Granulocytes Count 0.040 X10^3/uL (0.0-0.0); Mean Corp Hgb Conc 34.3 g/dL (32-36); Mean Corpuscular Volume 83.9 fL (81-99); Mean Platelet Vol. 10.6 fl (6.2-12.0); NRBC Flagged by Analyzer 0 % (0-5); Platelet Count 311 K/mm3 (150-450); RBC Distribution Width CV 12.1 % (11.6-14.6); RBC Distribution Width SD 36.8 fl (35.1-43.9); Red Blood Count 5.04 M/mm3 (4.2-5.4); White Blood Count 13.3 K/mm3 (4.4-11.0)
[2025-05-28 16:33] LABS: Internal QC Validated? YES +Cl - CLEAR BKGD; Pregnancy, Serum, hCG Quali. NEGATIVE Negative; Record Kit Lot#, Serum Preg. 0000980607
[2025-05-28 16:41] LABS: Color, Urine Yellow (Yellow); Glucose, Dipstick Normal (Normal); Ketone-Dipstick 5 mg/dl (Negative); Leukocyte Esterase-Dipstick 25 /ul (Negative); Nitrite-Dipstick Negative (Negative); Occult Blood-Urine 50 /ul (Negative); Protein-Dipstick 15 mg/dl (Negative); Specific Gravity, Urine 1.010 (1.002-1.030); Urine Bilirubin Dipstick Negative (Negative)
[2025-05-28 16:44] LABS: AST(SGOT) 19 U/L (<=31); Alanine Aminotransfer ALT/SGPT 15 U/L (<=34); Albumin, Serum 4.4 g/dL (3.5-5.0); Alkaline Phosphatase 66 U/L (35-104); Anion Gap 9 (5-15); BUN 9 mg/dL (4-19); BUN/Creat Ratio 12.1 RATIO (10-20); Calcium,Total 9.1 mg/dL (7.6-11.0); Carbon Dioxide 24.1 mmol/L (21.0-32.0); Chloride 105 mmol/L (98-108); Estimated Creatinine Clearance 70.64 ml/min (50-250); Globulin 2.8 g/dL (2.2-4.2); Glucose 105 mg/dL (70-99); Potassium 4.2 mmol/L (3.3-5.1)
[2025-05-28 16:50] LABS: Mucous, Urine RARE /hpf (<or=2+); Red Blood Cells-Urine 0-5 SEEN /hpf (0-5); Squamous Epithelial Cells - UA 0-5 SEEN /hpf (5-10)
--- NOTE | 2025-05-28 16:50 | EX.ED.DYSGE1 ---
HPI History of Present Illness Chief Complaint: Flank Pain Detail of Chief Complaint: See HPI narrative. Patient has more than just right flank pain Informant: patient Onset/Context/Timing Onset: Days (Symptoms started approximately 3 days ago.) Context: Sudden Onset Timing: Intermittent Quality: HPI narrative Location: HPI narrative Current Severity: Gone Maximum Severity: Severe Worsened by: Occurs in the morning Relieved by: Not applicable Associated Symptoms Associated Symptoms: Documented in the HPI narrative Narrative Narrative: Patient is a 44-year-old woman. She states that she is having 2 menses per month for the last couple of months. When asked if she was sexually active she responded I am a lesbian. She denies vaginal discharge. She denies history of STI. Patient apologized for crying. She states that the Angiocath that was placed in the left antecubital fossa is causing her pain because she believes it is too large for her veins. Patient has 2 complaints. Approximately 3 days ago she states when she wakes up in the morning she feels as if someone is poured hot water on her and she has hot sweats. She also complains of right flank pain that started 2 days ago. She has no history of renal ureterolithiasis. She denies dysuria, frequency, urgency or hematuria. There is no history of trauma. She has no food intolerance. She has never had anything like this before. Patient denies weight gain or weight loss. Review of prior records Rosemarie she has history of neuropathy as well as anxiety and depression. She does have a history of chronic back pain. This is not her back pain. This is located in the right flank area. Prior similar symptoms: No Recent Illness/Hospitalization: No PFSH PFS Medical History Edentulous Depression Anxiety Marijuana use Restless legs Migraine headache Injury of head and neck Smoker Chronic cough History of pain when walking History of palpitations GERD (gastroesophageal reflux disease) Shoulder pain Frequent headaches Chronic back pain History of alcohol abuse Manic depressive disorder Anxiety and depression Home Medications ?Medication ?Instructions ?Recorded ?Last Taken ?Type cholecalciferol (vitamin D3) 25 25 mcg PO DAILY 12/18/20 Unknown History mcg (1,000 unit) tablet (Vitamin D3) sertraline 100 mg tablet 100 mg PO DAILY 12/18/20 Unknown History alprazolam 0.5 mg tablet 0.5 mg PO BID PRN PRN Anxiety 05/23/22 Unknown History esomeprazole magnesium 40 mg 40 mg PO DAILY 05/23/22 Unknown History capsule,delayed release (Nexium) ibuprofen 600 mg tablet 600 mg PO Q6H PRN pain #30 tabs 05/30/22 Unknown Rx ondansetron 4 mg disintegrating 4 mg PO Q8H PRN PRN Nausea #10 tabs 08/24/24 Unknown Rx tablet pantoprazole 40 mg tablet,delayed 40 mg PO BID #90 tabs 09/06/24 Unknown Rx release hydrocodone-acetaminophen 5-325mg 1 tab PO Q6H PRN PRN Pain 2 days 05/28/25 Unknown Rx 5mg-325mg #8 TABLETS ondansetron 4 mg disintegrating 4 mg PO Q8H PRN PRN Nausea #10 tabs 05/28/25 Unknown Rx tablet Allergy/AdvReac Type Severity Reaction Status Date / Time No Known Allergies Allergy Verified 05/28/25 14:09 Family History Mother COPD (chronic obstructive pulmonary disease) Alcohol abuse Anxiety and depression Brother Anxiety and depression Surgical History History of esophagogastroduodenoscopy (EGD) Social History household members: other Smoking Status: Heavy Smoker (>10/day) Tobacco: How many years used: 20 quit status: not considering quitting alcohol intake: former year quit: 2001 substance use type: marijuana what type of physical activity do you participate in: none ROS ROS ED Constitutional Constitutional ED: Denies chills, fever(s), subjective or sweats Eyes Eyes: Denies blurry vision or change in vision ENT ENT ED: Denies ear pain, rhinorrhea or sore throat Cardiovascular Cardiovascular: Denies chest pain or palpitations Respiratory/Chest Respiratory/Chest: Denies cough, dyspnea or dyspnea on exertion Gastrointestinal Gastrointestinal: Reports nausea and vomiting; Denies abdominal pain, constipation, diarrhea or melena Genitourinary Genitourinary ED: Reports LMP (females 10-50) Details: Comment: (Beginning of last month.); Denies dysuria or urinary frequency Musculoskeletal Musculoskeletal: Denies arthralgias, back pain or myalgias Integumentary Denies rash Neurologic Neurologic: Denies headache(s) or paresthesias Psychiatric Psychiatric: Denies anxiety or depression Endocrine Endocrinology: Denies cold intolerance or heat intolerance Hematologic/Lymphatic Hematologic/Lymphatic: Reports systems reviewed and no addt'l complaints, except as documented EXAM Physical Exam Const Vital Signs: 05/28/25 14:09 05/28/25 16:08 Temperature 98.9 F Temperature Source Oral Pulse Rate 77 84 Respiratory Rate 22 H 18 Blood Pressure 112/88 H Blood Pressure Mean 96 Pulse Ox 99 Oxygen Delivery Method Room Air Positive well nourished and well developed Constitutional Narrative: Patient is tearful. Explanation was documented in HPI narrative. General Appearance ED: well developed; Negative for pallor HEENT Reports moist mucous membranes HEENT Narrative: Head is atraumatic and normocephalic. Ears are normal. Nares are patent. Patient is a edentulous. Eyes PERRL and EOMs intact bilaterally General Eye ED: Negative for pale conjunctiva or scleral icterus Neck no lymphadenopathy, supple and no JVD Resp normal respiratory effort and clear to auscultation bilaterally Cardio regular rate, regular rhythm, S1 normal heart sound, S2 normal heart sound and no murmurs GI normal to inspection, nondistended, normoactive bowel sounds, non-tender, non-distended and no masses; Negative for hepatosplenomegaly Back/Spine no CVA tenderness Extremity normal to inspection General Extremety ED: Negative for edema General Extremity: Negative for edema Neuro oriented x3, CN's II-XII intact bilaterally and no sensory deficits noted Sensorium / Orientation: alert Motor Exam: strength 5/5 throughout Psych Mood & Affect: tearful Skin no rashes or lesions noted, no wounds and skin turgor normal General Skin Exam: elasticity normal; Negative for jaundice or pallor MDM MDM Lab Data Labs: Laboratory Results - last 24 hr 05/28/25 05/28/25 16:19 16:30 WBC 13.3 H RBC 5.04 Hgb 14.5 Hct 42.3 MCV 83.9 MCH 28.8 MCHC 34.3 RDW Std Deviation 36.8 RDW Coeff of Miko 12.1 Plt Count 311 MPV 10.6 Immature Gran % (Auto) 0.300 Neut % (Auto) 80.2 H Lymph % (Auto) 11.0 L [place] % (Auto) 7.5 Eos % (Auto) 0.3 Baso % (Auto) 0.7 Absolute Neuts (auto) 10.7 H Absolute Lymphs (auto) 1.46 Nucleated RBC % 0 Sodium 139 Potassium 4.2 Chloride 105 Carbon Dioxide 24.1 Anion Gap 9 BUN 9 Creatinine 0.73 Estim Creat Clear Calc 70.64 Est GFR (MDRD) Non-Af 104 BUN/Creatinine Ratio 12.1 Glucose 105 H Calcium 9.1 Total Bilirubin 0.39 AST 19 ALT 15 Alkaline Phosphatase 66 Total Protein 7.2 Albumin 4.4 Globulin 2.8 Albumin/Globulin Ratio 1.6 Serum , Qual NEGATIVE Urine Color Yellow Urine Clarity Clear Urine pH 6.0 Ur Specific [place] 1.010 Urine Protein 15 H Urine Glucose (UA) Normal Urine Ketones 5 H Urine Occult Blood 50 H Urine Nitrite Negative Urine Bilirubin Negative Urine Urobilinogen Normal Ur Leukocyte Esterase 25 H Urine RBC 0-5 SEEN Urine WBC 0-5 SEEN Ur Squamous Epith Cells 0-5 SEEN Urine Bacteria RARE Urine Mucus RARE Treatment and Re-Evaluation :: Patient was informed of results she was reexamined. She has now reproducible pain and movement causes her pain. Plan is opiate analgesia and follow-up with her doctor if no improvement in 3 days. Patient is comfortable with this. Discharge Plan Triage Chief Complaint: Flank Pain ED Provider: Travis Berrios Dx/Rx/DC Orders Clinical Impression: Acute right flank pain, Strain of muscle and tendon of back wall of thorax, initial encounter, Cannabis use disorder, Nausea & vomiting Instructions: Cannabis Hyperemesis Syndrome, ED Back Pain (Acute or Chronic) Prescriptions: New hydrocodone-acetaminophen 5-325 mg tablet 1 tab PO Q6H PRN PRN (Reason: Pain) 2 Days Qty: 8 0RF ondansetron 4 mg tablet,disintegrating 4 mg PO Q8H PRN PRN (Reason: Nausea) Qty: 10 0RF No Action pantoprazole 40 mg tablet,delayed release (DR/EC) 40 mg PO BID Qty: 90 2RF sertraline 100 mg tablet 100 mg PO DAILY Patient Comments: TAKE 1 TABLET BY MOUTH ONCE DAILY cholecalciferol (vitamin D3) [Vitamin D3] 25 mcg (1,000 unit) Tablet 25 mcg PO DAILY alprazolam 0.5 mg tablet 0.5 mg PO BID PRN PRN (Reason: Anxiety) Patient Comments: TAKE 1 TABLET BY MOUTH AT BEDTIME NEEDED esomeprazole magnesium [Nexium] 40 mg Capsule,Delayed Release(Dr/Ec) 40 mg PO DAILY ibuprofen 600 mg tablet 600 mg PO Q6H PRN (Reason: pain) Qty: 30 0RF ondansetron 4 mg tablet,disintegrating 4 mg PO Q8H PRN PRN (Reason: Nausea) Qty: 10 0RF Primary Care Provider: MAJO CARDENAS Referrals: MAJO CARDENAS, [facility] [Primary Care Provider, Internal Medicine] - 3-5 Days if not improving Print Language: Maori Disposition Disposition: Home, Self Care
[2025-05-28 18:00] VITALS: PULSE 80; RESP 16
[2025-05-28] MEDS: HYDROcodone Bitartrate/Apap 5/325 Tablet PO (18:20)
[2025-05-28 19:00] VITALS: BP 112/88; PULSE 80; RESP 16; TEMP 37.2; O2SAT 99
== END 2025-05-28 19:00 | disposition home or self-care (01) ==
PROVIDERS: Emergency Provider Emergency Medicine; PCP Nurse Practitioner; Visit Provider Emergency Medicine
DX: S39.012A Strain of muscle, fascia and tendon of lower back, initial encounter (principal); X58.XXXA Exposure to other specified factors, initial encounter; R10.A1 Flank pain, right side; R11.2 Nausea with vomiting, unspecified; G62.9 Polyneuropathy, unspecified; F12.90 Cannabis use, unspecified, uncomplicated; F17.200 Nicotine dependence, unspecified, uncomplicated; F32.A Depression, unspecified; F41.9 Anxiety disorder, unspecified; Z79.899 Other long term (current) drug therapy
CPT/HCPCS: 80053; 81001; 84703; 85025; 99283; A4216